=== PATIENT | female | born 1995 | race Caucasian/White ===

== ENCOUNTER 2020-08-05 12:43 | Emergency (ER) | payer OTHER ==
--- NOTE | 2020-08-05 12:59 | EDM.PDOC ---
ED HPI GENERAL MEDICAL PROBLEM - General Chief Complaint: General Stated Complaint: NEEDS A NOTE BECAUSE SHE WAS SICK THIS MORNING Time Seen by Provider: 08/05/20 12:52 Source of Information: Reports: Patient, RN Notes Reviewed History Limitations: Reports: No Limitations - History of Present Illness INITIAL COMMENTS - FREE TEXT/NARRATIVE: Patient is a 25-year-old female presenting to the emergency department with request of a note for work. She states that this morning she woke up and vomited a few times. She took a nap and when she woke up she felt much better. She feels that she likely ate something bad is when she vomited it was undigested food. She had called in sick to work this morning and her employer, [employer], told her that she has to come to the ER to get a work note. She denies any fever, chills, abdominal pain, nausea, vomiting, or diarrhea at this time. - Related Data Allergies Allergy/AdvReac Type Severity Reaction Status Date / Time No Known Allergies Allergy Verified 08/05/20 12:56 Home Meds: Home Meds . [No Known Home Meds] 08/05/20 [History] ED ROS GENERAL - Review of Systems Review Of Systems: Comprehensive ROS is negative, except as noted in HPI. ED EXAM, GENERAL - Physical Exam Exam: See Below Exam Limited By: No Limitations General Appearance: Alert, WD/WN, No Apparent Distress Respiratory/Chest: No Respiratory Distress, Lungs Clear, Normal Breath Sounds, No Accessory Muscle Use, Chest Non-Tender Cardiovascular: Normal Peripheral Pulses, Regular Rate, Rhythm, No Edema, No Gallop, No JVD, No Murmur, No Rub GI/Abdominal: Normal Bowel Sounds, Soft, Non-Tender, No Organomegaly, No Distention, No Abnormal Bruit, No Mass Neurological: Alert, Oriented, CN II-XII Intact, Normal Cognition, Normal Gait, Normal Reflexes, No Motor/Sensory Deficits Psychiatric: Normal Affect, Normal Mood Skin Exam: Warm, Dry, Intact, Normal Color, No Rash Course - Vital Signs Last Recorded V/S: Last Vital Signs Temp 98.8 F 08/05/20 12:53 Pulse 84 08/05/20 12:53 Resp 16 08/05/20 12:53 BP 124/77 08/05/20 12:53 Pulse Ox 97 08/05/20 12:53 - Re-Assessments/Exams Free Text/Narrative Re-Assessment/Exam: Patient is a 25-year-old female presenting to the emergency department at the request of obtaining a note from work. She states upon waking this morning, she had a couple episodes of vomiting, therefore she did not go to work. She took a nap and upon waking she felt much better. She is had no further vomiting since that time. Denies any abdominal pain or diarrhea. We will provide her with a note for work with a return date of tomorrow. No further work-up is required. Discharge instructions as documented. Departure - Departure Time of Disposition: 12:58 Disposition: Home, Self-Care 01 Condition: Good Clinical Impression: Vomiting Qualifiers: Vomiting type: unspecified Vomiting Intractability: unspecified Nausea presence: unspecified Qualified Code(s): R11.10 - Vomiting, unspecified - Discharge Information *PRESCRIPTION DRUG MONITORING PROGRAM REVIEWED*: No *COPY OF PRESCRIPTION DRUG MONITORING REPORT IN PATIENT ALEJO: No Instructions: Vomiting, Adult Referrals: PCP,None [Primary Care Provider] - Forms: ED Department Discharge, ED Return to Work/School Form Additional Instructions: You were seen in the emergency department today with request to obtain a note for work after being ill this morning. He verbalized at this time you feel well. You have been provided with a note off from work with a return date tomorrow. If your nausea and vomiting should recur, recommend clear liquid diet for 24 to 48 hours. Return to ER as needed. Sepsis Event Note (ED) - Focused Exam Vital Signs: Vital Signs Temp Pulse Resp BP Pulse Ox 08/05/20 12:53 98.8 F 84 16 124/77 97
== END 2020-08-05 13:08 | disposition home or self-care (01) ==
LOC: JD.ED 12:43
DX: R11.10 Vomiting, unspecified (principal)
CPT/HCPCS: 99282; 99283

== ENCOUNTER 2021-03-02 16:24 | Emergency (ER) | payer MEDICAID ==
--- NOTE | 2021-03-02 17:30 | EDM.PDOC ---
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 Patient states that she had her last menstrual period at the beginning of last month in January. Patient states that she dev eloped some vaginal bleeding, with some lower abdominal discomfort today. 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 She also states that the abdomen discomfort/cramping was higher than her normal abdomen cramping when she gets her menses. Patient has not been having unprotected sex. She is a G2, P2. She did not take anything for pain management. She states that she had to put toilet paper in her underwear, while she was at work, because she did not have a tampon or pad with her at that time. States that when she went to the bathroom after that, it seemed like she had to wipe quite a bit to get rid of the blood, but then when she went to the bathroom in the ER here, there was not a lot of blood at all. She states this is just very atypical for her. States her last BM was about 2 hours ago and this is normal for her. Patient denies any other sick-like symptoms, fever/chills, cough/shortness of breath, nausea/vomiting/diarrhea. She is also denying any history of ovarian cysts or otherwise. Vaginal Pain Score (Numeric/FACES): 8 - Related Data Allergies Allergy/AdvReac Type Severity Reaction Status Date / Time No Known Allergies Allergy Verified 03/02/21 17:05 Home Meds: Home Meds Cefdinir [Omnicef] 300 mg PO BID 5 Days #10 cap 03/02/21 [Rx] metroNIDAZOLE [Flagyl] 500 mg PO BID 03/02/21 [History] Past Medical History - Past Health History Medical/Surgical History: Denies Medical/Surgical History : 2 Para: 2 Social & Family History - Tobacco Use Years of Tobacco use: 2 - Caffeine Use Caffeine Use: Reports: Coffee, Energy Drinks, Soda - Recreational Drug Use Recreational Drug Use: Yes Recreational Drug Type: Reports: Marijuana/Hashish ED ROS GENERAL - Review of Systems Review Of Systems: Comprehensive ROS is negative, except as noted in HPI. ED EXAM, RENAL/ - Physical Exam Exam: See Below Exam Limited By: No Limitations General Appearance: Alert, WD/WN, No Apparent Distress Respiratory/Chest: No Respiratory Distress, Lungs Clear, Normal Breath Sounds, No Accessory Muscle Use, Chest Non-Tender Cardiovascular: Normal Peripheral Pulses, Regular Rate, Rhythm, No Edema GI/Abdominal: Normal Bowel Sounds, Soft, No Distention, No Mass, Tender (States that her abdomen actually feels better with pressure applied to area of concern) Extremities: Normal Inspection, Normal Capillary Refill Neurological: Alert, Oriented, Normal Cognition, No Motor/Sensory Deficits Psychiatric: Normal Affect, Normal Mood Skin Exam: Warm, Dry, Intact, Normal Color, No Rash Course - Vital Signs Last Recorded V/S: Last Vital Signs Temp 97.0 F 03/02/21 17:04 Pulse 108 H 03/02/21 17:04 Resp 18 03/02/21 17:04 BP 136/88 03/02/21 17:04 Pulse Ox 99 03/02/21 17:04 - Orders/Labs/Meds Orders: Active Orders 24 hr Category Date Time Status CULTURE URINE [MREF] Urgent Lab 03/02/21 17:54 Ordered Labs: Laboratory Tests 03/02/21 03/02/21 Range/Units 17:15 17:25 Urine Color Yellow (Yellow) Urine Appearance Cloudy H (Clear) Urine pH 6.0 (5.0-8.0) Ur Specific [place] > or = 1.030 (1.005-1.030) Urine Protein 1+ H (Negative) Urine Glucose (UA) Negative (Negative) Urine Ketones 1+ H (Negative) Urine Occult Blood 3+ H (Negative) Urine Nitrite Negative (Negative) Urine Bilirubin 1+ H (Negative) Urine Urobilinogen 0.2 (0.2-1.0) Ur Leukocyte Esterase 2+ H (Negative) Urine RBC 50-75 H (0-5) /hpf Urine WBC 10-20 H (0-5) /hpf Ur Squamous Epith Cells 5-10 H (0-5) /hpf Urine Bacteria Moderate H (FEW) /hpf Urine Mucus Moderate H (FEW) /hpf Urine HCG, Qual Negative (NEGATIVE) - Re-Assessments/Exams Free Text/Narrative Re-Assessment/Exam: 03/02/21 17:29 Patient presents to the ER for her abnormal vaginal bleeding. At first glance we will have to rule out , also we will get a urinalysis for further evaluation. Then we will figure out more testing for management. 03/02/21 17:54 Patient is not but her urine does look suspicious for a UTI. We will try to get her going home with a course of oral antibiotics and have her take some ibuprofen every 6 hours over the next few days to see if this helps and will have her follow-up in clinic on Thursday if her vaginal bleeding does not seem to be getting better, or if her abdominal pain worsens. Departure - Departure Time of Disposition: 18:04 Disposition: Home, Self-Care 01 Condition: Good Clinical Impression: UTI (urinary tract infection) Qualifiers: Urinary tract infection type: acute cystitis Hematuria presence: with hematuria Qualified Code(s): N30.01 - Acute cystitis with hematuria - Discharge Information *PRESCRIPTION DRUG MONITORING PROGRAM REVIEWED*: No *COPY OF PRESCRIPTION DRUG MONITORING REPORT IN PATIENT ALEJO: No Prescriptions: Cefdinir [Omnicef] 300 mg PO BID 5 Days #10 cap Instructions: Urinary Tract Infection, Adult, [id number] Referrals: PCP,None [Primary Care Provider] - Forms: ED Department Discharge Additional Instructions: You have been evaluated in the ED for your urinary symptoms. Your urinalysis was consistent with an acute urinary tract infection. Your urine was sent for culture, and you will be notified if you should need a change in your antibiotic. This may take up to 48 hours to result. You have been given a prescription for Omnicef (cefdinir), 300 mg 1 tablet 2 times a day for 5 days. Please note that the antibiotics can take up to 48 hours to start working. This medication was electronically sent to the [place] pharmacy located in the [employer] store. Recommend you take 6 mg ibuprofen every 6 hours for ongoing pain management. Please increase your oral fluid intake and try to stay adequately hydrated. Please return to the ED if your symptoms change or worsen. Sepsis Event Note (ED) - Focused Exam Vital Signs: Vital Signs Temp Pulse Resp BP Pulse Ox 03/02/21 17:04 97.0 F 108 H 18 136/88 99 - My Orders Last 24 Hours: My Active Orders 03/02/21 17:54 CULTURE URINE [MREF] Urgent - Assessment/Plan Last 24 Hours: My Active Orders 03/02/21 17:54 CULTURE URINE [MREF] Urgent
== END 2021-03-02 18:20 | disposition home or self-care (01) ==
LOC: JD.ED 16:24
DX: N30.01 Acute cystitis with hematuria (principal)
CPT/HCPCS: 81001; 81025; 87086; 87088; 87186; 99284

== ENCOUNTER 2021-04-20 14:22 | Emergency (ER) | payer MEDICAID ==
[2021-04-20] MEDS ORDERED: Ketorolac 30 MG/ML SDV IM ONE (15:03)
[2021-04-20] MEDS ORDERED: Metoclopramide 10 MG/2 ML SDV IM ONE (15:15)
[2021-04-20] MEDS ORDERED: diphenhydrAMINE 50 MG/ML SDV IM ONE (15:15)
--- NOTE | 2021-04-20 15:19 | EDM.PDOC ---
ED HPI GENERAL MEDICAL PROBLEM - General Chief Complaint: Headache Stated Complaint: FEVER/HEADACHE/CONGESTION Time Seen by Provider: 04/20/21 14:53 Source of Information: Reports: Patient, RN Notes Reviewed History Limitations: Reports: No Limitations - History of Present Illness INITIAL COMMENTS - FREE TEXT/NARRATIVE: Patient is a 25-year-old female who presents to the ER for her fever/headache/upper respiratory congestion. Patient states that her temperature was 101.2 F at home yesterday. States that this was pretty constant all day yesterday. She had a pretty intense headache that seem to be located in the occipital region of her head all day yesterday, she tried some Tylenol and ibuprofen for this but it did not seem to help much. States that typically when she does get headaches 1 dose ibuprofen pretty much takes care of it. Having a slight bit of upper respiratory congestion with some drainage in the back of her throat, which is causing her to cough. No obvious shortness of breath, she did have some mild nausea but has not had any vomiting or diarrhea. Patient was not vaccinated for Covid 19, she does not think she has been around anyone that is been sick. Patient states that the headache lingered again today, she took some Tylenol around 4:30 AM, and then some ibuprofen around 8 AM and again none of this seems to be helping. States that she had to leave work today due to the headache pain. 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 Right Occipital Headache Pain Score (Numeric/FACES): 8 - Related Data Allergies Allergy/AdvReac Type Severity Reaction Status Date / Time No Known Allergies Allergy Verified 03/02/21 17:05 Home Meds: Home Meds Cefdinir [Omnicef] 300 mg PO BID 5 Days #10 cap 03/02/21 [Rx] metroNIDAZOLE [Flagyl] 500 mg PO BID 03/02/21 [History] Past Medical History - Past Health History Medical/Surgical History: Denies Medical/Surgical History Social & Family History - Caffeine Use Caffeine Use: Reports: Coffee, Energy Drinks, Soda ED ROS GENERAL - Review of Systems Review Of Systems: Comprehensive ROS is negative, except as noted in HPI. - Physical Exam Exam: See Below Exam Limited By: No Limitations General Appearance: Alert, WD/WN, No Apparent Distress Eye Exam: Bilateral Eye: EOMI, Normal Inspection, PERRL Nose: Normal Inspection, Normal Mucosa, No Blood Throat/Mouth: Normal Inspection, Normal Lips, Normal Teeth, Normal Gums, Normal Oropharynx, Normal Voice, No Airway Compromise Respiratory/Chest: No Respiratory Distress, Lungs Clear, Normal Breath Sounds, No Accessory Muscle Use, Chest Non-Tender Cardiovascular: Normal Peripheral Pulses, Regular Rate, Rhythm, No Edema GI/Abdominal: Normal Bowel Sounds, Soft, Non-Tender, No Distention, No Mass Neuro Exam (Abbreviated): Alert, Oriented, Normal Cognition, No Motor/Sensory Deficits Extremities: Normal Inspection, Normal Capillary Refill Psychiatric: Normal Affect, Normal Mood Skin Exam: Warm, Dry, Intact, Normal Color, No Rash Course - Vital Signs Last Recorded V/S: Last Vital Signs Temp 98.1 F 04/20/21 14:53 Pulse 98 04/20/21 14:53 Resp 16 04/20/21 14:53 BP 107/84 04/20/21 14:53 Pulse Ox 99 04/20/21 14:53 - Orders/Labs/Meds Labs: Laboratory Tests 04/20/21 Range/Units 15:36 Influenza Type A RNA Negative (NEGATIVE) Influenza Type B RNA Negative (NEGATIVE) SARS-CoV-2 RNA ([place]) Positive H (NEGATIVE) Meds: Medications Discontinued Medications Generic Name Dose Route Start Last Admin Trade Name Freq PRN Reason Stop Dose Admin Diphenhydramine HCl 25 mg 04/20/21 15:15 04/20/21 15:29 Diphenhydramine 50 Mg/Ml Sdv IM 04/20/21 15:16 25 mg ONETIME ONE Administration Ketorolac Tromethamine 30 mg 04/20/21 15:03 04/20/21 15:28 Ketorolac 30 Mg/Ml Sdv IM 04/20/21 15:04 30 mg ONETIME ONE Administration Metoclopramide HCl 10 mg 04/20/21 15:15 04/20/21 15:30 Metoclopramide 10 Mg/2 Ml Sdv IM 04/20/21 15:16 10 mg ONETIME ONE Administration - Re-Assessments/Exams Free Text/Narrative Re-Assessment/Exam: 04/20/21 15:18 Patient presents to the ER for the evaluation of her headache, and upper respiratory symptoms and fever yesterday. She will be swabbed for Covid/flu today we will treat her with Toradol, Benadryl and Reglan for ongoing management. 04/20/21 17:28 Patient's Covid screen did come back positive. The patient states that her headache is much better with the medications given. She is a fairly healthy individual otherwise and should be able to fight this off okay I did explain to her that she will likely feel somewhat ill for the next 10 days to 2 weeks but then should feel better. Departure - Departure Time of Disposition: 17:29 Disposition: Home, Self-Care 01 Condition: Good Clinical Impression: COVID-19 - Discharge Information *PRESCRIPTION DRUG MONITORING PROGRAM REVIEWED*: No *COPY OF PRESCRIPTION DRUG MONITORING REPORT IN PATIENT ALEJO: No Instructions: Prone Position Therapy, 10 Things You Can Do to Manage Your COVID-19 Symptoms at Home - [facility] (12/14/2020) Referrals: PCP,None [Primary Care Provider] - Forms: ED Department Discharge, ED Return to Work/School Form Additional Instructions: You were seen in the ER today for headache and upper respiratory. You did test positive for COVID-19 at today's visit. Please try to increase your oral fluid intake, and eat multiple small meals throughout the day, to keep yourself healthy. You need to keep yourself nourished in order to fight off this disease. You can try a liquid diet like gatorade/powerade as well to get your electrolytes. You may take 500 mg Tylenol every hours 6 hours for pain/fever relief. Do not exceed 4000 mg Tylenol in a 24-hour time span. However, running a fever is your body's natural response to illness, and it allows the body to develop antibodies to disease, we are recommending trying to limit the use of Tylenol as much as possible to allow your body's natural immune response. Recommend you obtain a pulse oximeter and monitor your oxygen levels at home, you should place the monitor on your finger, and sit in a calm, quiet position for a few minutes and then record the number that is on the screen. If this consistently below 90% on room air without movement, this would be cause for concern to come back to the hospital for further management of your COVID-19 disease. Please follow all guidance set forth from [facility], regarding isolation purposes for your disease process. General isolation times are 10 days from when you started being symptomatic. Sepsis Event Note (ED) - Evaluation Sepsis Screening Result: No Definite Risk - Focused Exam Vital Signs: Vital Signs Temp Pulse Resp BP Pulse Ox 04/20/21 14:53 98.1 F 98 16 107/84 99
[2021-04-20 17:16] LABS: CORONAVIRUS COVID-19 NAA POSITIVE (NEGATIVE)
== END 2021-04-20 17:44 | disposition home or self-care (01) ==
LOC: JD.ED 14:22
DX: U07.1 COVID-19 (principal)
CPT/HCPCS: 0240U; 96372; 99284; J1200; J1885; J2765

== ENCOUNTER 2022-04-13 12:32 | Emergency (ER) | payer MEDICAID ==
[2022-04-13] MEDS ORDERED: Sodium Chloride 0.9% 10 ML Syringe FLUSH PRN (13:05)
[2022-04-13] MEDS ORDERED: Ondansetron 4 MG/2 ML SDV IVPUSH ONE (13:05)
[2022-04-13] MEDS ORDERED: Sodium Chloride 0.9% 1,000 ML IV SCH (13:15)
[2022-04-13] MEDS ORDERED: Metoclopramide 10 MG/2 ML SDV IVPUSH ONE (13:17)
[2022-04-13] MEDS ORDERED: Dextrose 5%-Lactated Ringers 1,000 ML IV SCH (13:30)
[2022-04-13 14:06] LABS: ESTIMATED GFR 122 mL/min (>60)
[2022-04-13] MEDS ORDERED: Ondansetron 4 MG Tab.DIS PO ONE (15:50)
== END 2022-04-13 16:18 | disposition home or self-care (01) ==
LOC: JD.ED 12:32
DX: O99.281 Endocrine, nutritional and metabolic diseases complicating pregnancy, first trimester (principal); E86.0 Dehydration; O21.9 Vomiting of pregnancy, unspecified
CPT/HCPCS: 36415; 80053; 82009; 83605; 83690; 83735; 84702; 85025; 86140; 96361; 96374; 96375; 99283; A9270; J2405; J2765; J7030; J7121

== ENCOUNTER 2022-06-02 17:03 | Emergency (ER) | payer MEDICAID ==
[2022-06-02] MEDS ORDERED: Sodium Chloride 0.9% 10 ML Syringe FLUSH PRN (19:55)
[2022-06-02] MEDS ORDERED: Sodium Chloride 0.9% 1,000 ML IV STA (19:55)
[2022-06-02] MEDS ORDERED: Ondansetron 4 MG/2 ML SDV IVPUSH ONE ×2 (19:55→21:25)
[2022-06-02 20:15] LABS: ESTIMATED GFR 127 mL/min (>60)
[2022-06-02] MEDS ORDERED: Ondansetron 4 MG Tab.DIS PO ONE (23:09)
== END 2022-06-02 23:44 | disposition home or self-care (01) ==
LOC: JD.ED 17:03
DX: O21.0 Mild hyperemesis gravidarum (principal); Z3A.12 12 weeks gestation of pregnancy
CPT/HCPCS: 36415; 80053; 81001; 83735; 85025; 96361; 96374; 96376; 99284; A9270; J2405; J3490; J7030

== ENCOUNTER 2022-11-14 10:08 | Observation (INO) | payer BC, MEDICAID ==
[2022-11-15 09:50] LABS: GROUP B STREP BY PCR NEGATIVE (NEGATIVE)
== END 2022-11-14 11:15 | disposition home or self-care (01) ==
LOC: JD.OB 10:08 → UNDOADMOB 10:08 → UNDODISOB 11:15
PROVIDERS: ADMIT Obstetrics & Gynecology; ATTEND Obstetrics & Gynecology
DX: O36.8130 Decreased fetal movements, third trimester, not applicable or unspecified (principal); O99.891 Other specified diseases and conditions complicating pregnancy; R10.9 Unspecified abdominal pain; Z3A.36 36 weeks gestation of pregnancy
CPT/HCPCS: 59025; 87653

== ENCOUNTER 2022-12-06 07:07 | Inpatient (IN) | payer MEDICAID ==
[~2022-12-06 07:07] MED LIST: Lidocaine 1% 10 ML MDV ONE
[2022-12-06] MEDS ORDERED: Lidocaine 1% 50 ML MDV INJECT PRN (07:15)
[2022-12-06] MEDS ORDERED: Oxytocin/Lactated Ringers 10 UNIT/1,000 ML BAG IV SCH ×3 (07:15→21:07)
[2022-12-06] MEDS ORDERED: Nalbuphine 10 MG/0.5 ML Syringe IVPUSH PRN (07:15)
[2022-12-06 07:36] LABS: BASOPHILS ABSOLUTE AUTO 0.03 K/mm3 (0.01-0.08); BASOPHILS PERCENT AUTO 0.4 % (0.1-1.2); EOSINOPHILS ABSOLUTE AUTO 0.16 K/mm3 (0.04-0.36); EOSINOPHILS PERCENT AUTO 1.9 (0.7-5.8); HEMATOCRIT 33.2 % (34.1-44.9); HEMOGLOBIN 10.6 gm/dl (11.2-15.7); IMMATURE GRAN ABSOLUTE AUTO 0.03 K/mm3 (0.00-0.10); IMMATURE GRAN PERCENT AUTO 0.4 % (<=1.0); LYMPHOCYTES ABSOLUTE AUTO 2.72 K/mm3 (1.18-3.74); LYMPHOCYTES PERCENT AUTO 32.5 % (19.3-51.7); MEAN CORPUSCULAR HEMOGLOBIN 26.6 pg (25.6-32.2); MEAN CORPUSCULAR HGB CONC 31.9 g/dl (32.2-35.5); MEAN PLATELET VOLUME 10.4 fl (9.4-12.3); MONOCYTES ABSOLUTE AUTO 0.68 K/mm3 (0.24-0.36); MONOCYTES PERCENT AUTO 8.1 % (4.7-12.5); NEUTROPHILS ABSOLUTE AUTO 4.75 K/mm3 (1.56-6.13); NEUTROPHILS PERCENT AUTO 56.7 % (34.0-71.1); PLATELET COUNT,PLT 299 K/mm3 (182-369); RED BLOOD CELL COUNT 3.99 M/mm3 (3.98-5.22); WHITE BLOOD CELL COUNT,WBC 8.37 K/mm3 (3.98-10.04)
[2022-12-06 07:37] LABS: MEAN CORPUSCULAR VOLUME 83.2 fl (79.4-94.8)
[2022-12-06] MEDS ORDERED: ePHEDrine 50 MG/ML SDV IVPUSH PRN (07:50)
[2022-12-06] MEDS ORDERED: Bupivacaine/fentaNYL/NS 100 ML Bag EPIDUR PRN (07:50)
[2022-12-06] MEDS ORDERED: diphenhydrAMINE 50 MG/ML SDV IVPUSH PRN (07:50)
[2022-12-06] MEDS ORDERED: fentaNYL 100 MCG/2 ML SDV EPIDUR PRN (07:50)
[2022-12-06] MEDS: Lactated Ringers 1,000 ML IV SCH ×3 (08:21→14:00)
[2022-12-06] MEDS ORDERED: Docusate Sodium 100 MG Cap PO PRN (21:07)
[2022-12-06] MEDS ORDERED: Magnesium Hydroxide 400 MG/5 ML Susp 30 ML Cup PO PRN (21:07)
[2022-12-06] MEDS ORDERED: Hydrocortisone Acetate 25 MG Supp RECTAL PRN (21:07)
[2022-12-06] MEDS ORDERED: Benzocaine/Menthol 20%-0.5% Spray 78 GM Cannister TOP PRN (21:07)
[2022-12-06] MEDS ORDERED: Witch Hazel Medicated Pads 40/Jar TOP PRN (21:07)
[2022-12-06] MEDS: Ibuprofen 600 MG Tab PO PRN (22:30)
[2022-12-07] MEDS: Acetaminophen 325 MG Tab PO PRN ×3 (00:10→09:47)
[2022-12-07] MEDS: Ibuprofen 600 MG Tab PO PRN ×3 (04:00→16:02)
[2022-12-07] MEDS ORDERED: Prenatal Multivitamin with Calcium/Folic Acid/Iron Tab PO SCH (09:00)
== END 2022-12-07 18:05 | disposition home or self-care (01) | DRG 807 ==
LOC: JD.OB 07:07 → OBSVTOIN 19:06
PROVIDERS: ADMIT Obstetrics & Gynecology; ATTEND Obstetrics & Gynecology
PROC: 10E0XZZ Delivery of Products of Conception, External Approach (ICD-10-PCS; principal; 2022-12-06)
PROC: 10907ZC Drainage of Amniotic Fluid, Therapeutic from Products of Conception, Via Natural or Artificial Opening (ICD-10-PCS; 2022-12-06)
PROC: 0HQ9XZZ Repair Perineum Skin, External Approach (ICD-10-PCS; 2022-12-06)
PROC: 3E0R3BZ Introduction of Anesthetic Agent into Spinal Canal, Percutaneous Approach (ICD-10-PCS; 2022-12-06)
PROC: 00HU33Z Insertion of Infusion Device into Spinal Canal, Percutaneous Approach (ICD-10-PCS; 2022-12-06)
DX: O70.0 First degree perineal laceration during delivery (principal); Z37.0 Single live birth; Z3A.40 40 weeks gestation of pregnancy; Z79.899 Other long term (current) drug therapy; Z87.891 Personal history of nicotine dependence; Z86.59 Personal history of other mental and behavioral disorders; Z56.0 Unemployment, unspecified
CPT/HCPCS: 36415; 51702; 59025; 59409; 85025; 86592; 86850; 86900; 86901; A9270-GY; J2590; J3010; J3490; J7120